=== PATIENT | female | born 1945 | race Caucasian/White ===

== ENCOUNTER → 2017-12-10 07:48 | Outpatient (CLI) | payer MEDICARE, OTHER, SELFPAY ==
--- NOTE | 2017-12-10 07:48 | DT_ITS ---
This patient was seen during an EMR downtime December 07, 2017 - December 14, 2017. This patient may have a combination of paper and electronic documentation or all paper documentation. All documentation is viewable within the e-chart portion of [employer] for each patient visit.
--- NOTE | 2017-12-14 11:52 | PFT ---
INTRODUCTION: The patient is a 72-year-old female that presents for pulmonary function testing secondary to a diagnosis of COPD. Respiratory therapy reports good patient effort. Bronchodilators were used during testing. INTERPRETATION: Forced expiration spirometry demonstrates the presence of a moderately severe large airways obstructive ventilatory defect. There was no significant response to aerosolized bronchodilators. Spirograms are of good quality and do not plateau indicating slow emptying of the lungs. Body plethysmography was performed and reveals an elevated RV to 146% of predicted, indicative of underlying air trapping. Diffusing capacity by single breath CO is mildly reduced. IMPRESSION: These pulmonary function studies demonstrate the presence of an irreversible moderately severe large airways obstructive ventilatory defect with associated air trapping and reduction in diffusing capacity. There are no previous pulmonary function studies available for comparison.
== END ==
PROVIDERS: Visit Provider Internal Medicine
DX: J44.9 Chronic obstructive pulmonary disease, unspecified (principal)
CPT/HCPCS: 94060; 94726; 94729

== ENCOUNTER → 2022-12-22 | Outpatient (CLI) | payer MEDICARE, OTHER, SELFPAY ==
--- NOTE | 2022-12-22 08:16 | CT_ITS ---
EXAM: CT RIGHT LOWER EXTREMITY WITHOUT INTRAVENOUS CONTRAST CLINICAL INDICATION: OSTEOARTHRITIS TECHNIQUE: Helically acquired images were obtained of the right lower extremity without intravenous contrast. 2-D reformats were performed by the technologist. CTDIvol = ( 18.37 ) mGy, DLP = ( 1404.12 ) mGycm This CT exam was performed using one or more of the following dose reduction techniques: automated exposure control, adjustment of the mA and/or kV according to patient size, and/or use of iterative reconstruction technique. COMPARISON: No relevant prior studies available. FINDINGS: BONES/JOINTS: Severe tricompartmental arthrosis is worse at the medial femorotibial compartment with associated moderate suprapatellar joint effusion also with associated lateral subluxation of the tibia relative to the femur. Bilateral hip and SI joint osteoarthrosis is worse at the left hip joint. Prominent plantar and posterior calcaneal enthesophytes. No acute fracture. No sclerotic or destructive changes. No significant tibiotalar joint effusion. SOFT TISSUES: Unremarkable. No soft tissue swelling or gas. No radiopaque foreign body. VASCULATURE: Peripheral vascular calcifications. OTHER FINDINGS: Distal colonic diverticulosis without acute diverticulitis. CT/Extremity Lower without Contra IMPRESSION: 1. Preoperative planning study showing moderate to severe is osteoarthrosis of the knee, worse at the medial femorotibial compartment with moderate suprapatellar joint effusion associated. 2. Ancillary findings as above. Electronically Signed: Charan Ram MD at 22:04 EDT ,
== END | disposition home or self-care (01) ==
LOC: CT 08:09
PROVIDERS: PCP Family Medicine; Referring Provider Orthopaedic Surgery; Visit Provider Orthopaedic Surgery
DX: Z01.810 Encounter for preprocedural cardiovascular examination (principal); M17.11 Unilateral primary osteoarthritis, right knee
CPT/HCPCS: 73700

== ENCOUNTER 2023-01-12 05:21 | Day surgery (SDC) | payer MEDICARE, OTHER, SELFPAY ==
[2022-12-22 08:39] LABS: Hematocrit 44.9 % (37-47); Hemoglobin 14.1 g/dL (12.0-15.0); Mean Corp Hgb Conc 31.4 g/dL (32-36); Mean Corpuscular Hgb 29.9 pg (27.0-32.0); Mean Corpuscular Volume 95.3 fL (81-99); Mean Platelet Vol. 9.4 fl (6.2-12.0); Platelet Count 205 K/mm3 (150-450); RBC Distribution Width CV 12.8 % (11.6-14.6); RBC Distribution Width SD 45.1 fl (35.1-43.9); Red Blood Count 4.71 M/mm3 (4.2-5.4); White Blood Count 8.9 K/mm3 (4.4-11.0)
[2022-12-22 08:58] LABS: Hemoglobin A1c 6.8 % (3.8-5.6)
[2022-12-22 09:08] LABS: Anion Gap 4 (5-15); BUN 16 mg/dL (7-18); BUN/Creat Ratio 17.8 RATIO (10-20); Calcium,Total 9.7 mg/dL (8.5-10.1); Chloride 104 mmol/L (98-107); EST Glomerular Filtration Rate 64 mL/min (>60); Est Glom Filt Rate - Afr Amer 78 mL/min (>60); Glucose 140 mg/dL (74-106); Potassium 3.9 mmol/L (3.5-5.1); Sodium Level 140 mmol/L (136-145)
[2022-12-24 18:21] LABS: Magnesium 2.4 mg/dL (1.6-2.6)
[2023-01-12] VITALS (10 sets, daily range): BP systolic 129–161; BP diastolic 61–81; PULSE 60–73; RESP 12–16; TEMP 36.1–36.9; O2SAT 96–100; BMI 30.5
--- NOTE | 2023-01-12 | KNEE_PTH ---
PATIENT: ROSARIO CASTANEDA LOC: [facility] U#:[id number] AGE/SX: 77/F ROOM: RE01/12/[address]: Dr. Sudeep Ponce DO : 1945 BED: DIS: 01/12/2023 SPEC #: [id number] RECD: 01/12/23 12:56 STATUS: JOSE REReina #: [id number] MARKEL: 01/12/23 00:[address]: Sudeep Ponce DEPT: SURGICAL PATHOLOGY RECD BY: Ricardo Aguilar ENTERED: 01/12/23 12:57 SP TYPE: TOTAL KNEE OTHR DR: MD Edson Alcazar PA-C Tissues: Knee, NOS Procedures: Decalcification bone/plaque Surgery Specimen Level IV HEADER OPERATION: ERAS, total knee replacement robotic arm assist PRE-OP DIAGNOSIS: Unilateral primary osteoarthritis, effusion, valgus deformity, right knee TISSUE SUBMITTED: Right knee bone and tissue MICROSCOPIC DIAGNOSIS Bone and tissue of right knee, total joint resection: Severe degenerative joint disease. AM:prerna 01/15/23 MICROSCOPIC DESCRIPTION Slides are reviewed. GROSS DESCRIPTION Received is one container designated bone and soft tissue right knee. The specimen consists of multiple fragments of celis-yellow bone measuring in aggregate 11x 9 x 3 cm. No soft tissue is identified. A number of bony fragments contain articular surfaces consistent with tibial plateau and femoral condyle and displaying prominent osteophyte formation, eburnation and bone erosion. [employer] sections are submitted in one cassette after decalcification. / SJ: 01/12/23 TC:5 CPT: 05757, 45410
[2023-01-12] MEDS: Lactated Ringers 1,000 ML 15 ML IV (06:25)
[2023-01-12] MEDS: Magnesium 1 GM over 15 mins IV (06:46)
[2023-01-12] MEDS: Gabapentin 600 MG Tablet PO (06:46)
[2023-01-12] MEDS: Acetaminophen 500 MG Tablet 1000 MG PO (06:46)
[2023-01-12 07:04] LABS: Bedside Glucose 145 mg/dL (74-106)
[2023-01-12] MEDS: Cefazolin 2 GM in 0.9% Normal Saline 100 ML IV (07:39)
[2023-01-12] MEDS: TXA 1000mg in NS100 100ml (IVPB at Incision) 660 MG IV (07:50)
[2023-01-12] MEDS: Lactated Ringers 1,000 ML 999 ML IV (08:30)
[2023-01-12] MEDS: TXA 1000mg in NS100 100ml (IVPB at Closure) 660 MG IV (08:42)
[2023-01-12] MEDS: JPS (Morphine 10mg/ml) OPERA.SITE (08:53)
--- NOTE | 2023-01-12 08:59 | PCM.OPRPT ---
Report of Operation Date of Procedure: 01/12/23 Pre-Operative Diagnosis: OA right knee Post-Operative Diagnosis: same Surgery/Procedure Performed:: Right TKR Description of Surgical Findings:: Report of Operation 01/12/23 Date of Procedure: Preoperative Diagnosis: [right ] knee primary osteoarthritis Postoperative Diagnosis: [right ] knee primary osteoarthritis Operation: Robotic Assisted Knee Total Arthroplasty, [right ] knee Surgeon: Dr Sudeep Ponce DO Orthopedic Physical Therapist: Edson Cox PA-C Anesthesia: spinal Anesthesiologist: Aristeo Duran M.D. Findings: Stable knee with good patella tracking Specimen(s): Bony cuts Complications: No intraoperative complications Estimated Blood Loss: 30 cc IV Fluids: 1000 cc crystalloid Implants Used: 1. Emilee Triathlon press-fit CR size 4 femur 2. Nesmith Triathlon size 4 tibia 3. 32 mm patella 4. 9 mm CS polyethylene Brief History Operative Indications: [ (77 y/o female) ] with history of [ right ] knee osteoarthrosis with radiographic findings with loss of joint space, osteophyte formation and subchondral sclerosis. Failed conservative measures as mentioned in the H&P. Discussion of total knee arthroplasty as well as risk and benefits were discussed with the patient including but not limited to blood loss, DVTs, PEs, neurovascular damage, general risk of anesthesia including loss of life, and stiffness or instability were also discussed with the patient. Patient demonstrated understanding and was able to sign informed consent. Procedure: On the date of procedure, patient's [ right ] lower extremity was marked in the preoperative area. The patient was then taken back to the operating room where that patient was placed on the table in the supine position. All bony prominences were identified and well-padded. Anesthesia assumed control of the C-spine and airway throughout the remainder of the procedure. A tourniquet was placed on the [ right ] upper thigh and the leg was prepped in a sterile fashion. The surgeon then scrubbed at this time. Upon reentering the room, the [right ] lower extremity was draped in a standard orthopedic fashion. A timeout was then called and everyone agreed upon the side, the site, the procedure to be performed, patient's identity and antibiotics given. Esmarch bandage was used to exsanguinate the extremity and the tourniquet was placed up to 250 mmHg with the knee in flexion. A midline skin incision was made and a sharp dissection was taken down through skin, subcutaneous tissue and fat. The standard medial parapatellar incision was made and the patella was subluxed laterally. An appropriate deep MCL release was done and the fat pad was resected. Our attention was then directed to the patella. The patella was everted and a flat resection was made. The knee was then flexed up and 2 femoral pins were placed inside the incision and 2 tibial pins were placed outside the incision in the medial tibia bicortically. Once this was completed, the 2 checkpoints in the femur and tibia were placed. Knee was then flexed up and the bony landmarks were registered. Once the was completed, the knee taken through range of motion and manually stressed allowing us to plan for an appropriate tibial cut. The robotic arm was brought into the field sterilely and checkpoint and saw were registered. Based on the patient's deformity, the tibial cut was made in [ 2 degrees varus ]. At this time, the tensioner was then placed in the joint and ligament tension was checked at 90 degrees and full extension. Based on the patient's ligamentous tension, appropriate adjustments were made to the operative plan and ligament releases were done. Once we were happy with our operative plan with balanced flexion and extension gaps, our attention was directed to the femur. The robot was brought into the field sterilely and registered. Posterior condylar cuts, anterior chamfer cuts and anterior cuts were appropriately made for a [ size 4 ] femur. When these were completed, the saws were switched out in the distal femoral and posterior chamfer cuts were made. Protecting the soft tissue throughout this time. A [size 4 ] base plate was selected. The knee was flexed to 90 degrees and soft tissues and posterior osteophytes were removed from the joint. 40 cc of the periarticular injection was injected into the posterior medial corner of the joint. The appropriate trials were then placed on the femur and tibia. A trial polyethylene was trialed to ensure proper balancing and stability of the knee. The appropriate tibial internal rotation was then marked with a bovie. Our attention was then directed to the patella. The lug holes were drilled and the patella trial was placed. Patellar tracking was checked and deemed appropriate. Once we were happy, lug holes were drilled for the femur and trial components were removed. The tibia was subluxed and pinned into place and the keel was punched and drilled appropriately. Final components were verified and opened. The wound was copiously irrigated with normal saline. The components were impacted into place with the tibia, femur and finally the patella. The trial poly component was placed and the knee was placed in full extension. The tracking, alignment and balance were verified and a [9 mm CS ] polyethylene component was placed. Once the final components were placed an Irrisept lavage was performed and the wound was copiously irrigated with normal saline solution and the periarticular injection was given. the wound was closed in a layer-hayden fashion using #1 vicryl interrupted sutures for the arthrotomy, 2-0 interrupted vicryl suture for the subcuticular layer and alfredo for final skin closure. A sterile compressive dressing was then placed. The patient was then awakened from anesthesia, transferred to the [place] and transferred to the PACU for recovery. My physician assistant film editor was a vital part of this case. He was important in appropriate retraction during the case, and protection of soft tissues during bony cuts. His intimate knowledge of the case and my steps aided in safe and expedient completion of the procedure as well as appropriate position of the leg during the case. He was also vital in assisting with closure under my direct supervision. Due to the complexity of this case, robotic arm was used to assist in the surgery to improve accuracy and clinical outcomes. Post-op Plan: DVT ppx; ASA 81 mg BID, thigh high compression stockings Follow up: in office in 2 weeks for wound check PT: to start POD #0 at hospital, outpatient PT should be arranged. Preoperative antibiotic: Ancef 2 grams IV Sudeep Ponce DO Surgeon: Sudeep Ponce chinchilla machine operator: Edson Cox Type of Anesthesia: Spinal Anesthesiologist: Aristeo Duran Estimated Blood Loss (mL): 30 cc Fluids Replaced: 1000 cc crystalloid Admit VTE Documentation VTE Present on Admission: No VTE Mechan Device Prophylaxis: SCD's and Thigh High LIANE Hose VTE Pharm Prophylaxis ordered?: Yes
--- NOTE | 2023-01-12 09:35 | RAD_ITS ---
STUDY: X-RAY - RIGHT KNEE REASON FOR EXAM: Female, 77 years old. Post op -- in PACU TECHNIQUE: 2 view(s) of the knee. COMPARISON: None. FINDINGS: Normal visualized distal femur. Normal visualized proximal tibia and fibula. Normal proximal tibiofibular articulation. The patient is status post total knee replacement. There is good alignment. Postoperative soft tissue changes. RAD/Knee 1 or 2 Views IMPRESSION: Status post total knee replacement. There is good alignment. Postoperative soft tissue changes. Electronically Signed: Kip San MD at 12:28 EDT ,
[2023-01-12] MEDS: oxyCODONE 5 MG Tablet PO ×2 (13:31→13:33)
== END 2023-01-12 14:37 | disposition home or self-care (01) ==
LOC: SDC 05:21 → AC 05:21
PROVIDERS: Anesthesiology; Physician Assistant; PCP Family Medicine; Referring Provider Orthopaedic Surgery; Visit Provider Orthopaedic Surgery
PROC: 0SRC0JZ Replacement of Right Knee Joint with Synthetic Substitute, Open Approach (ICD-10-PCS; CPT 27447; principal; 2023-01-12 07:00)
DX: M17.11 Unilateral primary osteoarthritis, right knee (principal); M21.061 Valgus deformity, not elsewhere classified, right knee; M25.461 Effusion, right knee; I10 Essential (primary) hypertension; E66.8 Other obesity; Z79.899 Other long term (current) drug therapy; Z68.30 Body mass index [BMI] 30.0-30.9, adult
CPT/HCPCS: 27447; S2900; 64447; 01402; 36415; 73560; 80048; 82962; 83036; 83735; 85027; 87081; 88305; 88311; 93005; 97162; C1776; J7120; A4216; J2405; J3475